=== PATIENT | male | born 1985 | race Caucasian/White ===

== ENCOUNTER 2017-03-12 09:29 | Emergency (ER) | payer OTHER ==
[~2017-03-12] VITALS: Ht 172.7 cm; Wt 78.5 kg
[2017-03-12] MEDS ORDERED: BACTRIM DS 8001 TA1 PO (11:02)
== END 2017-03-12 11:07 | disposition home or self-care (01) ==
LOC: ED 09:29
DX: S41.111A Laceration without foreign body of right upper arm, initial encounter (principal); Z88.6 Allergy status to analgesic agent; W45.8XXA Other foreign body or object entering through skin, initial encounter; Y93.89 Activity, other specified; Y92.89 Other specified places as the place of occurrence of the external cause; Y99.8 Other external cause status

== ENCOUNTER → 2022-05-27 | Outpatient (CLI) | payer OTHER ==
[~2022-05-27] MED LIST: BACTRIM DS 8001 TA1 PO
== END | disposition home or self-care (01) ==
LOC: MRI 09:00
PROVIDERS: ATTEND Specialist
DX: R42 Dizziness and giddiness (principal)

== ENCOUNTER → 2024-01-12 | Outpatient (CLI) | payer OTHER ==
[2024-01-12 13:26] LABS: HEMATOCRIT 44.5 % (42.0-52.0); MEAN CELL VOLUME 88.1 fl (80.0-94.0); MEAN CORPUSCULAR HGB 30.5 pg (27.0-31.0); MEAN CORPUSCULAR HGB CONC 34.6 g/dl (33.0-37.0); MEAN PLATELET VOLUME 9.5 fl (9.6-12.3); RED BLOOD COUNT 5.05 10*6/uL (4.50-5.90); RED CELL DISTRI WIDTH 11.9 % (0-14.5); WHITE BLOOD COUNT 5.7 10*3/uL (4.8-10.8)
[2024-01-12 14:11] LABS: ALKALINE PHOSPHATASE 59 U/L (46-116); BUN 14 mg/dl (9-23); CHLORIDE 106 mmol/L (98-107); CHOLESTEROL 203 mg/dL (<200); LDL CHOLESTEROL 109 mg/dL (9-159); POTASSIUM 3.7 mmol/L (3.4-5.1); SGPT/ALT 43 U/L (5-49); TOTAL PROTEIN 7.5 gm/dL (6.0-8.0); TRIGLYCERIDES 277 mg/dl (<150)
== END ==
LOC: LAB 13:10
PROVIDERS: ATTEND Family Medicine
DX: Z13.220 Encounter for screening for lipoid disorders (principal); Z00.00 Encounter for general adult medical examination without abnormal findings; K21.9 Gastro-esophageal reflux disease without esophagitis; E55.9 Vitamin D deficiency, unspecified

== ENCOUNTER → 2024-01-13 | Outpatient (CLI) | payer OTHER ==
[~2024-01-13] MED LIST changes: +BARIUM SULFATE 60% 355 ML BOT PO ONE; +BARIUM SULFATE 98% 340 GM BOT PO ONE; +SODIUM BICARBONATE 4 GM PACK PO ONE
== END | disposition home or self-care (01) ==
LOC: RAD 00:32
PROVIDERS: ATTEND Family Medicine
DX: R13.10 Dysphagia, unspecified (principal)

== ENCOUNTER → 2024-08-04 | Outpatient (CLI) | payer OTHER ==
[~2024-08-04] MED LIST changes: -BARIUM SULFATE 60% 355 ML BOT PO ONE; -BARIUM SULFATE 98% 340 GM BOT PO ONE; -SODIUM BICARBONATE 4 GM PACK PO ONE
[2024-08-04 16:06] LABS: HEMATOCRIT 42.5 % (42.0-52.0); MEAN CELL VOLUME 88.5 fl (80.0-94.0); MEAN CORPUSCULAR HGB 30.2 pg (27.0-31.0); MEAN CORPUSCULAR HGB CONC 34.1 g/dl (33.0-37.0); MEAN PLATELET VOLUME 9.4 fl (9.6-12.3); RED BLOOD COUNT 4.8 10*6/uL (4.50-5.90); RED CELL DISTRI WIDTH 11.6 % (0-14.5)
[2024-08-04 16:35] LABS: ALKALINE PHOSPHATASE 65 U/L (46-116); BUN 10 mg/dl (9-23); CHLORIDE 106 mmol/L (98-107); CHOLESTEROL 186 mg/dL (<200); LDL CHOLESTEROL 94 mg/dL (9-159); POTASSIUM 3.8 mmol/L (3.4-5.1); SGPT/ALT 19 U/L (5-49); TRIGLYCERIDES 274 mg/dl (<150)
== END | disposition home or self-care (01) ==
LOC: LAB 15:38
PROVIDERS: ATTEND Family Medicine
DX: E78.00 Pure hypercholesterolemia, unspecified (principal); R13.10 Dysphagia, unspecified; K21.9 Gastro-esophageal reflux disease without esophagitis

== ENCOUNTER → 2025-03-10 | Outpatient (CLI) | payer OTHER ==
[2025-03-10 09:00] LABS: MEAN CELL VOLUME 89.8 fl (80.0-94.0); MEAN CORPUSCULAR HGB 29.7 pg (27.0-31.0); MEAN PLATELET VOLUME 9.7 fl (9.6-12.3); NUCLEATED RED BLOOD CELL 0.0 % (0.0-0.0); NUCLEATED RED BLOOD CELL 0.0 10*3/uL (0.0-0.0); PLATELET COUNT AUTOMATED 299.0 10*3/uL (130-400); RED CELL DISTRI WIDTH 11.6 % (0-14.5)
[2025-03-10 09:24] LABS: BUN 14 mg/dl (9-23); LDL CHOLESTEROL 102 mg/dL (9-159); SGPT/ALT 14 U/L (5-49)
[2025-03-10 10:50] LABS: VITAMIN D, 25-HYDROXY 38.0 ng/mL (30-100)
== END | disposition home or self-care (01) ==
LOC: LAB 08:17
PROVIDERS: ATTEND Family Medicine
DX: E78.00 Pure hypercholesterolemia, unspecified (principal); E55.9 Vitamin D deficiency, unspecified; R53.83 Other fatigue

== ENCOUNTER → 2025-07-12 | Outpatient (CLI) | payer OTHER ==
[2025-07-12 15:56] LABS: MEAN CELL VOLUME 89.4 fl (80.0-94.0); MEAN CORPUSCULAR HGB 29.6 pg (27.0-31.0); MEAN PLATELET VOLUME 9.4 fl (9.6-12.3); NUCLEATED RED BLOOD CELL 0.0 % (0.0-0.0); NUCLEATED RED BLOOD CELL 0.0 10*3/uL (0.0-0.0); PLATELET COUNT AUTOMATED 302.0 10*3/uL (130-400); RED CELL DISTRI WIDTH 11.7 % (0-14.5)
[2025-07-12 16:25] LABS: BUN 11 mg/dl (9-23); LDL CHOLESTEROL 104 mg/dL (9-159); SGPT/ALT 27 U/L (5-49)
== END | disposition home or self-care (01) ==
LOC: LAB 15:22
PROVIDERS: ATTEND Family Medicine
DX: E78.00 Pure hypercholesterolemia, unspecified (principal)